=== PATIENT | female | born 1985 | race Caucasian/White ===

== ENCOUNTER → 2016-11-13 | Outpatient (CLI) | payer MEDICARE, MEDICAID | LOC: LAB.O 08:42 | PROVIDERS: ATTEND Psychiatry & Neurology Psychiatry | DX: F20.0 Paranoid schizophrenia (principal) ==

== ENCOUNTER → 2016-12-04 | Outpatient (CLI) | payer MEDICARE, MEDICAID | LOC: YCFC.O 11:54 | PROVIDERS: ATTEND Nurse Practitioner Family | DX: R50.9 Fever, unspecified (principal); R05 Cough; R52 Pain, unspecified ==

== ENCOUNTER → 2017-04-09 | Outpatient (CLI) | payer MEDICARE, MEDICAID | END | disposition home or self-care (01) | LOC: LAB.O 08:40 | PROVIDERS: ATTEND Psychiatry & Neurology Psychiatry | DX: F20.0 Paranoid schizophrenia (principal); F43.12 Post-traumatic stress disorder, chronic ==

== ENCOUNTER → 2017-04-16 | Outpatient (CLI) | payer MEDICARE, MEDICAID | END | disposition home or self-care (01) | LOC: LAB.O 11:25 | PROVIDERS: ATTEND Nurse Practitioner Family | DX: R94.5 Abnormal results of liver function studies (principal); E78.5 Hyperlipidemia, unspecified; N92.6 Irregular menstruation, unspecified; G40.909 Epilepsy, unspecified, not intractable, without status epilepticus; E03.9 Hypothyroidism, unspecified ==

== ENCOUNTER → 2017-10-15 | Outpatient (CLI) | payer MEDICARE, MEDICAID | LOC: YCFC.O 08:27 | PROVIDERS: ATTEND Nurse Practitioner Family | DX: E78.5 Hyperlipidemia, unspecified (principal); D64.9 Anemia, unspecified; Z13.220 Encounter for screening for lipoid disorders ==

== ENCOUNTER → 2018-02-12 | Outpatient (CLI) | payer MEDICARE, MEDICAID | END | disposition home or self-care (01) | LOC: LAB.O 08:09 | PROVIDERS: ATTEND Psychiatry & Neurology Psychiatry | DX: Z79.899 Other long term (current) drug therapy (principal); F20.0 Paranoid schizophrenia; F43.12 Post-traumatic stress disorder, chronic ==

== ENCOUNTER → 2019-01-27 | Outpatient (CLI) | payer MEDICARE, MEDICAID | LOC: LAB.O 08:22 | PROVIDERS: ATTEND Psychiatry & Neurology Psychiatry | DX: E03.9 Hypothyroidism, unspecified (principal) ==

== ENCOUNTER → 2020-07-09 | Outpatient (CLI) | payer MEDICARE, MEDICAID | LOC: YCFC.O 08:27 | PROVIDERS: ATTEND Family Medicine | DX: R63.4 Abnormal weight loss (principal); E03.9 Hypothyroidism, unspecified; G40.909 Epilepsy, unspecified, not intractable, without status epilepticus; D64.9 Anemia, unspecified; D53.9 Nutritional anemia, unspecified ==

== ENCOUNTER → 2020-10-08 | Outpatient (CLI) | payer MEDICARE, MEDICAID | LOC: LAB.O 08:29 | PROVIDERS: ATTEND Family Medicine | DX: E03.9 Hypothyroidism, unspecified (principal); D64.9 Anemia, unspecified; D51.9 Vitamin B12 deficiency anemia, unspecified ==